=== PATIENT | female | born 1950 | race African-American/Black ===

== ENCOUNTER 2017-06-07 15:22 | Inpatient (IN) | payer MEDICARE, MEDICAID ==
[2017-06-07] VITALS (8 sets, daily range): BP systolic 118–192; BP diastolic 46–80
[~2017-06-07] VITALS: Ht 157.5 cm; Wt 71.4 kg
[~2017-06-07 15:22] MED LIST: ACETAMINOP160 MG/12 PER TUBE; ACETAMINOPHEN325 M1 PER TUBE; ACIDOPHILUS LA1 EAC1 PER TUBE; ALPRAZOLAM 0.0.25 M1 OR; APAP500; APAP500 PO; BENEPROTEIN1 EACH PER TUBE; CENTRUM SILVER1 EAC4 PO; CLEOCIN40 GM PER TUBE; CONSTULOSE10 GM/152; DILANTIN100 MG OR; DILANTIN50 MG PER TUBE; DITROPAN XL10 M1; DITROPAN XL10 M1 PO; DUONEB 2.5-0.5 M3 ML INH; ENULOSE10 GM/15 M PO; K-DUR10 ME1 OR; K-DUR10 ME1 PO; LACTULOSE10 GM/15 M PER TUBE; LANTUS SC; LASIX 40 MG TAB40 M2 PER TUBE; LEVAQUIN 500 M500 M2 PER TUBE; LEVEMIR SUBQ; LOPRESSOR25 PER TUBE; MILK OF MA2400 MG/10 PER TUBE; NEXIUM20 M1; NEXIUM40 MG PO; NOVOLIN N100 UNIT/1 SC; NOVOLIN R100 UNIT/1 SC; NOVOLOG100 UNIT/1 SC; NOVOLOG100 UNIT/1 SUBQ; NYSTATIN 1100000 U/M TOP; OXYGEN; PHENYTOIN100 MG/4 M; POLYETHYLENE G255 GM PO; POTASSIUM20 PO; PREVACID 15 MG15 M4 DISSOLVE; REGLAN 10 MG TA10 MG PO; REMERON15 MG PER TUBE; SEROQUEL 25 MG25 M1 OR; SEROQUEL 25 MG25 M1 PO; SILVADENE20 GM; SSD CREAM 1% 5050 G1 TOP; TOPROL XL25 MG; TRAVATAN 0.004%5 ML IO; TRUSOPT OCUMETE10 M1 IO; TRUSOPT OCUMETE10 ML OPHTHALMIC; TRUSOPT5 ML; TYLENOL325 MG PO; VITAMIN C + RO500 MG; VITAMIN C120 GM PO; XALATAN2.5 ML OPHTHALMIC; ZANTAC 150MG T150 MG PER TUBE; [UNRECOGNIZED DRUG - OTHER]
[2017-06-07] MEDS ORDERED: BISACODYL SUPP10 MG RECTAL (15:59)
[2017-06-07] MEDS ORDERED: ACIDOPHILUS1 EAC3 PO (15:59)
[2017-06-07] MEDS ORDERED: OMEPRAZOLE20 M2 PO (16:00)
[2017-06-07] MEDS ORDERED: REMERON15 MG PO (16:00)
[2017-06-07] MEDS ORDERED: TUBERCULIN IM (16:01)
[2017-06-07] MEDS ORDERED: SILVADENE20 GM TOP (16:01)
[2017-06-07] MEDS ORDERED: XALATAN2.5 ML OPHTHALMIC (16:02)
[2017-06-07 16:03] LABS: INFLUENZA A ANTIGEN None Detected (None Detect); INFLUENZA B ANTIGEN None Detected (None Detect)
[2017-06-07 16:40] LABS: HEMATOCRIT 45.6 % (37.0-47.0); HEMOGLOBIN 14.6 gm/dL (12.0-15.0); MCH 27.5 pg (26.0-34.0); MCHC 32.1 g/dL (28.0-37.0); MCV 85.5 fL (80.0-100.0); MPV 8.6 fl. (7.2-11.1); NUCLEATED RBCS 0 /100WBC; PLATELET COUNT* 128 thou/uL (150-400); RBC 5.33 mil/uL (4.20-5.00); RDW-CV 13.8 % (10.5-14.5); WBC 16.1 thou/uL (4.0-11.0)
[2017-06-07 16:44] LABS: URINE BILIRUBIN NEGATIVE (Negative); URINE BLOOD 2+ (Negative); URINE CLARITY CLOUDY; URINE COLOR YELLOW; URINE GLUCOSE-RANDOM 1+ (Negative); URINE KETONES 1+ (Negative); URINE LEUKOCYTES-REFLEX 1+ (Negative); URINE NITRITE-REFLEX NEGATIVE (Negative); URINE PROTEIN NEGATIVE (Negative); URINE UROBILINOGEN 0.2 E.U./dl (0.2-1.0)
[2017-06-07 16:48] LABS: INR 1.1; PROTIME 10.8 Seconds (9.20-11.50)
[2017-06-07 16:51] LABS: ANION GAP 11 mmol/L (7-16); BUN 11 mg/dL (7-18); CALCIUM 8.6 mg/dL (8.5-10.1); CHLORIDE 98 mmol/L (98-107); CO2 27 mmol/L (21-32); CREATININE 0.8 mg/dL (0.6-1.3); GLUCOSE 219 mg/dL (70-99); POTASSIUM 3.8 mmol/L (3.5-5.1); SODIUM 136 mmol/L (136-145)
[2017-06-07 17:02] LABS: CASTS None Seen /LPF (None Seen); SQUAMOUS >10 Many /LPF (0-3)
[2017-06-07 17:04] LABS: URINE WBC-REFLEX >25 Many /HPF (0-5)
[2017-06-07 17:04] LABS: ALBUMIN 3.1 g/dL (3.4-5.0); ALKALINE PHOSPHATASE 151 U/L (46-116); LIPASE 38 U/L (73-393); NT-PRO BRAIN NAT PEPTIDE 210 pg/mL (<300); SGOT 44 U/L (15-37); SGPT 41 U/L (30-65); TOTAL BILIRUBIN 0.3 mg/dL (<0.1-1.0); TOTAL PROTEIN 8.4 g/dL (6.4-8.2); TROPONIN-I LEVEL <0.06 ng/mL (<0.06)
[2017-06-07 17:05] LABS: BACTERIA-REFLEX >30 Many /HPF (None Seen)
[2017-06-07 17:06] LABS: CRYSTALS None Seen /LPF (None Seen)
[2017-06-07 17:14] LABS: ABSOLUTE LYMPHOCYTES 1.1 thou/uL (0.8-5.3); ABSOLUTE MONOCYTES 0.3 thou/uL (0.0-1.2); ABSOLUTE NEUTROPHILS 14.7 thou/uL (1.6-8.1)
[2017-06-07 17:15] LABS: PLATELET ESTIMATE ADEQUATE
[2017-06-08] VITALS (8 sets, daily range): BP systolic 99–166; BP diastolic 42–74
[2017-06-08 04:02] LABS: HEMATOCRIT 38.2 % (37.0-47.0); MCH 27.6 pg (26.0-34.0); MCHC 32.5 g/dL (28.0-37.0); MCV 84.9 fL (80.0-100.0); MPV 8.4 fl. (7.2-11.1); RBC 4.5 mil/uL (4.20-5.00); RDW-CV 13.9 % (10.5-14.5); WBC 10.9 thou/uL (4.0-11.0)
[2017-06-08 04:15] LABS: ALBUMIN 2.4 g/dL (3.4-5.0); CALCIUM 7.7 mg/dL (8.5-10.1); CREATININE 0.6 mg/dL (0.6-1.3); MAGNESIUM 1.6 mg/dL (1.8-2.4); POTASSIUM 3.5 mmol/L (3.5-5.1); TOTAL BILIRUBIN 0.3 mg/dL (<0.1-1.0); TOTAL PROTEIN 6.5 g/dL (6.4-8.2)
[2017-06-08 04:56] LABS: HEMOGLOBIN 12.4 gm/dL (12.0-15.0)
--- NOTE | 2017-06-08 16:28 | EKG ---
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: Shannon RADFORD : 1950 Requested By: Jaylan Walker Order Number: [id number] MD: Elias Prince Measurements Intervals [place] Rate: 117 P: 60 HI: 138 QRS: 46 QRSD: 74 T: 50 QT: 352 QTc: 491 Interpretive Statements Sinus tachycardia Nonspecific T abnrm, anterolateral and inferior leads, consider ischemia Borderline prolonged QT interval Compared to ECG 01/13/2017 22:08:57 Sinus rhythm no longer present Electronically Signed On 06-08-2017 16:28:27 RECEIVABLES SPECIALIST by Elias Prince [email or web address] <ELECTRONICALLY SIGNED> By: Elias Prince MD, FACC 06/08/17 1628 1536 1536 Elias Prince MD, FAC /EPI
[2017-06-09] VITALS: BP 155/68
[2017-06-09 04:00] VITALS: BP 141/55
[2017-06-09 05:36] LABS: HEMATOCRIT 36.6 % (37.0-47.0); HEMOGLOBIN 11.8 gm/dL (12.0-15.0); MCH 27.6 pg (26.0-34.0); MCHC 32.3 g/dL (28.0-37.0); MCV 85.4 fL (80.0-100.0); MPV 8.6 fl. (7.2-11.1); RBC 4.29 mil/uL (4.20-5.00); RDW-CV 14.1 % (10.5-14.5); WBC 8.2 thou/uL (4.0-11.0)
[2017-06-09 05:51] LABS: ALBUMIN 2.4 g/dL (3.4-5.0); CALCIUM 7.5 mg/dL (8.5-10.1); CREATININE 0.6 mg/dL (0.6-1.3); MAGNESIUM 1.8 mg/dL (1.8-2.4); TOTAL BILIRUBIN 0.1 mg/dL (<0.1-1.0); TOTAL PROTEIN 6.6 g/dL (6.4-8.2)
[2017-06-09 08:00] VITALS: BP 141/65
[2017-06-09 12:00] VITALS: BP 123/72
[2017-06-09 16:00] VITALS: BP 148/56
[2017-06-09 20:00] VITALS: BP 159/60
[2017-06-10] VITALS: BP 167/69
[2017-06-10 04:00] VITALS: BP 157/64
[2017-06-10 04:25] LABS: HEMATOCRIT 38.7 % (37.0-47.0); HEMOGLOBIN 12.4 gm/dL (12.0-15.0); MCH 27.4 pg (26.0-34.0); MCHC 31.9 g/dL (28.0-37.0); MCV 85.9 fL (80.0-100.0); MPV 8.8 fl. (7.2-11.1); RBC 4.5 mil/uL (4.20-5.00); RDW-CV 14.5 % (10.5-14.5); WBC 8.8 thou/uL (4.0-11.0)
[2017-06-10 04:32] LABS: CREATININE 0.6 mg/dL (0.6-1.3); POTASSIUM 3.5 mmol/L (3.5-5.1)
[2017-06-10 08:00] VITALS: BP 122/46
[2017-06-10 10:38] LABS: ABSOLUTE EOSINOPHILS 0.3 thou/uL (0.0-0.7); ABSOLUTE LYMPHOCYTES 1.6 thou/uL (0.8-5.3); ABSOLUTE MONOCYTES 0.7 thou/uL (0.0-1.2); ABSOLUTE NEUTROPHILS 4.8 thou/uL (1.6-8.1); BASOPHILS 0.4 %; EOSINOPHILS 4.2 %; HEMATOCRIT 36.8 % (37.0-47.0); HEMOGLOBIN 11.7 gm/dL (12.0-15.0); LYMPHOCYTES 21.5 %; MCH 27.4 pg (26.0-34.0); MCHC 31.7 g/dL (28.0-37.0); MCV 86.2 fL (80.0-100.0); MONOCYTES 9.8 %; MPV 8.6 fl. (7.2-11.1); NUCLEATED RBCS 0 /100WBC; PLATELET COUNT* 121 thou/uL (150-400); POLYS 64.1 %; RBC 4.27 mil/uL (4.20-5.00); RDW-CV 14.3 % (10.5-14.5); WBC 7.5 thou/uL (4.0-11.0)
[2017-06-10 10:42] LABS: CREATININE 0.7 mg/dL (0.6-1.3); POTASSIUM 3.7 mmol/L (3.5-5.1)
[2017-06-10 12:24] VITALS: BP 117/49
[2017-06-10 15:37] VITALS: BP 158/60
[2017-06-10 20:00] VITALS: BP 147/54
[2017-06-11] VITALS: BP 153/50
[2017-06-11 03:55] VITALS: BP 182/73
[2017-06-11 07:15] LABS: ABSOLUTE EOSINOPHILS 0.5 thou/uL (0.0-0.7); ABSOLUTE LYMPHOCYTES 1.9 thou/uL (0.8-5.3); ABSOLUTE MONOCYTES 0.8 thou/uL (0.0-1.2); ABSOLUTE NEUTROPHILS 5.5 thou/uL (1.6-8.1); BASOPHILS 0.4 %; EOSINOPHILS 5.4 %; HEMATOCRIT 35.9 % (37.0-47.0); HEMOGLOBIN 11.5 gm/dL (12.0-15.0); LYMPHOCYTES 22.2 %; MCH 27.4 pg (26.0-34.0); MCHC 32.1 g/dL (28.0-37.0); MCV 85.1 fL (80.0-100.0); MONOCYTES 9.3 %; MPV 7.9 fl. (7.2-11.1); NUCLEATED RBCS 0 /100WBC; PLATELET COUNT* 140 thou/uL (150-400); POLYS 62.7 %; RBC 4.22 mil/uL (4.20-5.00); RDW-CV 14.3 % (10.5-14.5); WBC 8.7 thou/uL (4.0-11.0)
[2017-06-11 07:29] LABS: CALCIUM 7.9 mg/dL (8.5-10.1); CREATININE 0.7 mg/dL (0.6-1.3); POTASSIUM 3.4 mmol/L (3.5-5.1)
[2017-06-11 08:00] VITALS: BP 154/66
[2017-06-11 12:51] VITALS: BP 139/81
[2017-06-11 16:46] VITALS: BP 138/54
[2017-06-11 20:00] VITALS: BP 146/44
[2017-06-12 00:24] VITALS: BP 159/56
[2017-06-12 04:38] VITALS: BP 143/51
[2017-06-12 06:08] LABS: ABSOLUTE EOSINOPHILS 0.5 thou/uL (0.0-0.7); ABSOLUTE LYMPHOCYTES 2.2 thou/uL (0.8-5.3); ABSOLUTE MONOCYTES 0.9 thou/uL (0.0-1.2); ABSOLUTE NEUTROPHILS 5.3 thou/uL (1.6-8.1); BASOPHILS 0.5 %; EOSINOPHILS 5.8 %; HEMATOCRIT 35.9 % (37.0-47.0); HEMOGLOBIN 11.6 gm/dL (12.0-15.0); MCH 27.5 pg (26.0-34.0); MCHC 32.2 g/dL (28.0-37.0); MCV 85.3 fL (80.0-100.0); NUCLEATED RBCS 0 /100WBC; PLATELET COUNT* 150 thou/uL (150-400); POLYS 58.7 %; RBC 4.21 mil/uL (4.20-5.00); RDW-CV 14.3 % (10.5-14.5)
[2017-06-12 06:12] LABS: CALCIUM 8.3 mg/dL (8.5-10.1); CREATININE 0.7 mg/dL (0.6-1.3); POTASSIUM 3.9 mmol/L (3.5-5.1)
[2017-06-12 08:00] VITALS: BP 139/57
[2017-06-12 12:11] VITALS: BP 143/78
[2017-06-12 16:00] VITALS: BP 135/42
[2017-06-12 20:05] VITALS: BP 167/66
[2017-06-13] VITALS: BP 147/61
[2017-06-13 04:40] VITALS: BP 124/56
[2017-06-13 05:31] LABS: CALCIUM 8.3 mg/dL (8.5-10.1); CREATININE 0.6 mg/dL (0.6-1.3); POTASSIUM 3.7 mmol/L (3.5-5.1)
[2017-06-13 08:15] VITALS: BP 113/49
[2017-06-13 11:37] VITALS: BP 115/53
[2017-06-13 16:00] VITALS: BP 131/48
[2017-06-13 20:35] VITALS: BP 132/43
[2017-06-14] VITALS: BP 137/45
[2017-06-14 04:00] VITALS: BP 130/44
[2017-06-14 05:24] LABS: CALCIUM 8.4 mg/dL (8.5-10.1); CREATININE 0.8 mg/dL (0.6-1.3); POTASSIUM 3.8 mmol/L (3.5-5.1)
[2017-06-14 08:00] VITALS: BP 114/48
[2017-06-14 11:34] VITALS: BP 17/63
[2017-06-14 15:30] VITALS: BP 130/49
[2017-06-15] VITALS (7 sets, daily range): BP systolic 115–168; BP diastolic 46–83
[2017-06-15 05:00] LABS: HEMATOCRIT 35.2 % (37.0-47.0); HEMOGLOBIN 11.3 gm/dL (12.0-15.0); MCH 27.4 pg (26.0-34.0); MCHC 31.9 g/dL (28.0-37.0); MCV 85.9 fL (80.0-100.0); MPV 7.9 fl. (7.2-11.1); RBC 4.1 mil/uL (4.20-5.00); RDW-CV 14.7 % (10.5-14.5); WBC 8.9 thou/uL (4.0-11.0)
[2017-06-15 05:11] LABS: CALCIUM 8.3 mg/dL (8.5-10.1); CREATININE 0.8 mg/dL (0.6-1.3); POTASSIUM 3.8 mmol/L (3.5-5.1)
[2017-06-16 04:00] VITALS: BP 163/56
[2017-06-16 04:50] LABS: HEMATOCRIT 34.6 % (37.0-47.0); MCH 27.5 pg (26.0-34.0); MCHC 31.8 g/dL (28.0-37.0); MCV 86.6 fL (80.0-100.0); RBC 3.99 mil/uL (4.20-5.00); WBC 11.2 thou/uL (4.0-11.0)
[2017-06-16 05:17] LABS: CALCIUM 8.4 mg/dL (8.5-10.1); CREATININE 1.5 mg/dL (0.6-1.3)
[2017-06-16 08:00] VITALS: BP 150/60
[2017-06-16 09:35] LABS: CALCIUM 8.6 mg/dL (8.5-10.1); CREATININE 1.7 mg/dL (0.6-1.3); POTASSIUM 4.1 mmol/L (3.5-5.1)
[2017-06-16 12:23] VITALS: BP 125/41
[2017-06-16 15:52] VITALS: BP 133/48
[2017-06-16 19:35] VITALS: BP 160/63
[2017-06-17 00:08] VITALS: BP 177/64
[2017-06-17 04:27] VITALS: BP 161/57
[2017-06-17 05:57] LABS: HEMATOCRIT 33.9 % (37.0-47.0); HEMOGLOBIN 10.7 gm/dL (12.0-15.0); MCH 27.3 pg (26.0-34.0); MCHC 31.7 g/dL (28.0-37.0); MCV 86.1 fL (80.0-100.0); MPV 7.9 fl. (7.2-11.1); RBC 3.93 mil/uL (4.20-5.00); RDW-CV 14.9 % (10.5-14.5); WBC 13.4 thou/uL (4.0-11.0)
[2017-06-17 06:06] LABS: CALCIUM 8.2 mg/dL (8.5-10.1); CREATININE 2.1 mg/dL (0.6-1.3)
[2017-06-17 08:00] VITALS: BP 149/55
[2017-06-17 12:09] VITALS: BP 132/62
[2017-06-17 16:00] VITALS: BP 162/58
[2017-06-17 20:00] VITALS: BP 175/64
[2017-06-18] VITALS (8 sets, daily range): BP systolic 140–190; BP diastolic 52–80
[2017-06-18 05:06] LABS: HEMATOCRIT 31.9 % (37.0-47.0); HEMOGLOBIN 10.3 gm/dL (12.0-15.0); MCH 27.5 pg (26.0-34.0); MCHC 32.3 g/dL (28.0-37.0); MCV 85.2 fL (80.0-100.0); MPV 8.5 fl. (7.2-11.1); RBC 3.75 mil/uL (4.20-5.00); RDW-CV 14.7 % (10.5-14.5); WBC 12.6 thou/uL (4.0-11.0)
[2017-06-18 05:11] LABS: CALCIUM 8.4 mg/dL (8.5-10.1); CREATININE 2.1 mg/dL (0.6-1.3); MAGNESIUM 2.3 mg/dL (1.8-2.4); POTASSIUM 3.7 mmol/L (3.5-5.1)
[2017-06-19 00:12] VITALS: BP 141/72
[2017-06-19 04:01] VITALS: BP 149/54
[2017-06-19 06:25] LABS: HEMATOCRIT 30.6 % (37.0-47.0); HEMOGLOBIN 9.7 gm/dL (12.0-15.0); MCH 27.2 pg (26.0-34.0); MCHC 31.5 g/dL (28.0-37.0); MCV 86.2 fL (80.0-100.0); MPV 8.3 fl. (7.2-11.1); RBC 3.55 mil/uL (4.20-5.00); RDW-CV 14.3 % (10.5-14.5); WBC 9.6 thou/uL (4.0-11.0)
[2017-06-19 06:50] LABS: CALCIUM 8.4 mg/dL (8.5-10.1); CREATININE 2.1 mg/dL (0.6-1.3); MAGNESIUM 2.2 mg/dL (1.8-2.4); POTASSIUM 3.5 mmol/L (3.5-5.1); TOTAL BILIRUBIN 0.3 mg/dL (<0.1-1.0); TOTAL PROTEIN 6.8 g/dL (6.4-8.2)
[2017-06-19 08:00] VITALS: BP 172/76
[2017-06-19 12:00] VITALS: BP 151/69
[2017-06-19 16:00] VITALS: BP 146/81
[2017-06-19 20:00] VITALS: BP 132/82
[2017-06-20] VITALS (7 sets, daily range): BP systolic 151–185; BP diastolic 56–74
[2017-06-20 06:21] LABS: HEMATOCRIT 31.7 % (37.0-47.0); HEMOGLOBIN 10.2 gm/dL (12.0-15.0); MCH 27.4 pg (26.0-34.0); MCHC 32.3 g/dL (28.0-37.0); MPV 8.2 fl. (7.2-11.1); RBC 3.73 mil/uL (4.20-5.00); RDW-CV 14.6 % (10.5-14.5); WBC 12.4 thou/uL (4.0-11.0)
[2017-06-20 06:41] LABS: ALBUMIN 2.2 g/dL (3.4-5.0); CALCIUM 8.7 mg/dL (8.5-10.1); CREATININE 2.1 mg/dL (0.6-1.3); MAGNESIUM 2.2 mg/dL (1.8-2.4); PHOSPHORUS* 2.6 mg/dL (2.5-4.9); POTASSIUM 3.9 mmol/L (3.5-5.1); TOTAL BILIRUBIN 0.2 mg/dL (<0.1-1.0); TOTAL PROTEIN 7.5 g/dL (6.4-8.2)
[2017-06-20 16:00] LABS: URINE BILIRUBIN NEGATIVE (Negative); URINE BLOOD TRACE (Negative); URINE CLARITY CLEAR; URINE GLUCOSE-RANDOM 2+ (Negative); URINE KETONES NEGATIVE (Negative); URINE LEUKOCYTES-REFLEX TRACE (Negative); URINE NITRITE-REFLEX NEGATIVE (Negative); URINE PROTEIN NEGATIVE (Negative); URINE UROBILINOGEN 0.2 E.U./dl (0.2-1.0)
[2017-06-20 16:01] LABS: URINE COLOR PALE YELLOW
[2017-06-20 16:12] LABS: CASTS None Seen /LPF (None Seen); CRYSTALS None Seen /LPF (None Seen); SQUAMOUS 4-10 Moderate /LPF (0-3); URINE RBC 0-2 Rare /HPF (0-2); URINE WBC-REFLEX 6-15 Few /HPF (0-5); YEAST-REFLEX Present (None Seen)
[2017-06-20 17:06] LABS: POTASSIUM 3.6 mmol/L (3.5-5.1)
[2017-06-21 04:00] VITALS: BP 156/42
[2017-06-21 05:31] LABS: HEMATOCRIT 29.9 % (37.0-47.0); HEMOGLOBIN 9.7 gm/dL (12.0-15.0); MCH 27.9 pg (26.0-34.0); MCHC 32.6 g/dL (28.0-37.0); MCV 85.7 fL (80.0-100.0); MPV 8.5 fl. (7.2-11.1); RBC 3.48 mil/uL (4.20-5.00); RDW-CV 14.6 % (10.5-14.5); WBC 7.6 thou/uL (4.0-11.0)
[2017-06-21 05:51] LABS: ALBUMIN 2.1 g/dL (3.4-5.0); CALCIUM 8.1 mg/dL (8.5-10.1); CREATININE 1.8 mg/dL (0.6-1.3); MAGNESIUM 2.1 mg/dL (1.8-2.4); PHOSPHORUS* 2.4 mg/dL (2.5-4.9); POTASSIUM 3.6 mmol/L (3.5-5.1); TOTAL BILIRUBIN 0.1 mg/dL (<0.1-1.0); TOTAL PROTEIN 7.3 g/dL (6.4-8.2)
[2017-06-21 07:30] VITALS: BP 160/59
[2017-06-21 12:11] VITALS: BP 153/66
[2017-06-21 16:00] VITALS: BP 146/57
[2017-06-21 20:00] VITALS: BP 156/70
[2017-06-21 23:47] VITALS: BP 168/84
[2017-06-22 03:32] VITALS: BP 168/72
[2017-06-22 05:19] LABS: ALBUMIN 2.3 g/dL (3.4-5.0); CALCIUM 8.2 mg/dL (8.5-10.1); CREATININE 1.6 mg/dL (0.6-1.3)
[2017-06-22 08:00] VITALS: BP 141/59
--- NOTE | 2017-06-22 10:41 | CON ---
[address] [address] CONSULTATION Name: JANEY MAGAÑA Room: [address] IN [facility]#: [id number] Admission: 06/07/17 Attend Phys: Yennifer Hodges MD Discharge: Date of : 46 Report #: [id number] THIS REPORT FOR: //name// CC: Yennifer Haas REQUESTING PHYSICIAN: Dr. Seay. REASON FOR CONSULTATION: Hypernatremia and acute kidney injury. 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 She cannot walk, cannot use her right arm, mental status is altered. She also has history of diabetes mellitus type 2, COPD. She was admitted to the hospital with fever, possible aspiration. She was diagnosed with pneumonia and E. coli UTI, started on antibiotics, her creatinine jumped up from 0.8 yesterday to 1.5 today and serum sodium is 149 and I was consulted. PAST MEDICAL HISTORY: As mentioned earlier. The patient is nonverbal. REVIEW OF SYSTEMS: Unobtainable due to her being nonverbal. SOCIAL HISTORY: She has good family support. No tobacco or alcohol abuse obviously due to her condition. MEDICATIONS: She is on Rocephin, Dilantin, insulin, IV fluids, she is on half normal saline and she is also on tube feeding and free water boluses 3 tube feeding. PHYSICAL EXAMINATION: GENERAL: Nonverbal, does not react to any of my command and to my voice. VITAL SIGNS: Blood pressure 150/60, heart rate 95 and temperature 37.8 Celsius maximum temperature 38.2 Celsius. NECK: Supple. LUNGS: A few coarse breath sounds, but otherwise clear. CARDIOVASCULAR: Regular rate. No pericardial rub. ABDOMEN: Soft, obese. She got PEG tube in place. EXTREMITIES: With 1-2+ edema. LABORATORY DATA: Serum sodium 149, potassium 4.1, chloride 109, carbon dioxide 31, BUN 25, creatinine 1.7. Hemoglobin is 11.0, white count 11,200. Her urine culture positive for E. coli. Blood culture positive for group B species. ASSESSMENT: A 67-year-old female status post stroke. She is bedridden and nonverbal, admitted with pneumonia, bacteremia and Escherichia coli and urinary tract infection. She developed some acute kidney injury likely due to all these infections. She is nonoliguric. She is on antibiotics, [place] [address] CONSULTATION Name: JANEY MAGAÑA Room: [address]#: [id number] Admission: 06/07/17 Attend Phys: Yennifer Hodges MD Discharge: Date of : 46 Report #: [id number] boluses through tube feeds with a PEG tube and antibiotics and fluids so everything is appropriate. I would continue with current management and observe for response. Thank you very much for asking my opinion on acute kidney injury of this patient. <ELECTRONICALLY SIGNED> By: Perla Fermin MD 06/22/17 1041 1053 1527Alexfredy Funez MD /PMT
[2017-06-22 11:53] VITALS: BP 141/66
[2017-06-22 16:31] VITALS: BP 131/44
[2017-06-22 20:00] VITALS: BP 162/64
[2017-06-22 23:23] VITALS: BP 175/70
[2017-06-23 03:48] VITALS: BP 153/44
[2017-06-23 08:00] VITALS: BP 170/71
[2017-06-23 11:30] VITALS: BP 163/65
[2017-06-23 12:27] LABS: HEMATOCRIT 29.5 % (37.0-47.0); HEMOGLOBIN 9.5 gm/dL (12.0-15.0); MCH 27.5 pg (26.0-34.0); MCHC 32.4 g/dL (28.0-37.0); MPV 8.3 fl. (7.2-11.1); RBC 3.47 mil/uL (4.20-5.00); RDW-CV 14.4 % (10.5-14.5); WBC 7.1 thou/uL (4.0-11.0)
[2017-06-23 12:38] LABS: CALCIUM 8.4 mg/dL (8.5-10.1); CREATININE 1.4 mg/dL (0.6-1.3); POTASSIUM 4.1 mmol/L (3.5-5.1)
[2017-06-23 15:30] VITALS: BP 151/55
[2017-06-23 20:00] VITALS: BP 155/67
[2017-06-24] VITALS (7 sets, daily range): BP systolic 151–165; BP diastolic 53–70
[2017-06-24 04:46] LABS: HEMATOCRIT 29.2 % (37.0-47.0); HEMOGLOBIN 9.7 gm/dL (12.0-15.0); MCH 28.4 pg (26.0-34.0); MCHC 33.3 g/dL (28.0-37.0); MCV 85.2 fL (80.0-100.0); MPV 8.4 fl. (7.2-11.1); RBC 3.42 mil/uL (4.20-5.00); RDW-CV 14.3 % (10.5-14.5); WBC 8.3 thou/uL (4.0-11.0)
[2017-06-24 05:15] LABS: CALCIUM 8.4 mg/dL (8.5-10.1); CREATININE 1.3 mg/dL (0.6-1.3); POTASSIUM 4.1 mmol/L (3.5-5.1)
[2017-06-25 04:23] VITALS: BP 147/55
[2017-06-25 05:31] LABS: HEMATOCRIT 30.2 % (37.0-47.0); HEMOGLOBIN 9.9 gm/dL (12.0-15.0); MCH 28.1 pg (26.0-34.0); MCHC 32.8 g/dL (28.0-37.0); MCV 85.6 fL (80.0-100.0); MPV 9.1 fl. (7.2-11.1); RBC 3.53 mil/uL (4.20-5.00); RDW-CV 14.7 % (10.5-14.5); WBC 8.1 thou/uL (4.0-11.0)
[2017-06-25 05:45] LABS: CALCIUM 8.8 mg/dL (8.5-10.1); CREATININE 1.2 mg/dL (0.6-1.3); POTASSIUM 4.4 mmol/L (3.5-5.1)
[2017-06-25 12:13] VITALS: BP 119/62
[2017-06-25 15:50] VITALS: BP 118/51
[2017-06-25] MEDS ORDERED: DDAVP0.1 MG/1 M NASAL (15:56)
[2017-06-25] MEDS ORDERED: BISACODYL SUPP10 MG RECTAL (15:57)
[2017-06-25] MEDS ORDERED: MYCOSTATIN TOP ×2 (15:58→15:59)
[2017-06-25] MEDS ORDERED: NORVASC5 MG PER TUBE (16:00)
[2017-06-25] MEDS ORDERED: TYLENOL325 MG PER TUBE (16:01)
--- NOTE | 2017-07-03 00:06 | CON ---
[address] [address] CONSULTATION Name: JANEY AVELAR Room: [address]#: [id number] Admission: 06/07/17 Attend Phys: Yennifer Hodges MD Discharge: 06/25/17 Date of : 46 Report #: [id number] THIS REPORT FOR: //name// CC: Yennifer Haas DATE OF SERVICE: 06/19/2017 CONSULTATION: Infectious diseases. HISTORY OF PRESENT ILLNESS: Ms. Avelar is a debilitated 67-year-old female who has been hospitalized since 06/07. 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 She was initially admitted with elevated temperature, nausea and vomiting, was thought to have an aspiration pneumonia. Initial workup included positive blood culture with enterococcus. The patient has been in the hospital and improving. On , the patient began having more fever as high as 101.9 and doing worse. Blood cultures were obtained. Infectious Disease consultation was requested for fever and positive blood culture. PAST HISTORY: Significant for diabetes with hypertension and COPD. The patient has a history of seizures, stroke, dementia and depression. The patient is pretty much aphasic and dependent for all the activities of daily living. She is a chronic fci patient, as a result, and no history of allergies. MEDICATION RECONCILIATION: As follow: Vancomycin 500 mg q.12h., meropenem 500 mg IV every 8 hours, nystatin partner q.i.d. to the groin, sliding scale lispro insulin with p.r.n. dextrose and glucagon, fluconazole 100 mg IV daily, Zosyn 3.375 IV q. 6h., phenytoin 100 mg per G-tube t.i.d., pantoprazole 40 mg IV b.i.d., Silvadene to wounds, phosphorous 2 packets per tube t.i.d., magnesium p.r.n. per protocol, dorzolamide eyedrops one b.i.d., Latanoprost eyedrops 0.005% 1 drop bedtime, mirtazapine 15 mg per tube at bedtime, metoprolol 25 mg per tube b.i.d., lactobacillus acidophilus 1 tablet per tube q.i.d., lactulose 15 mL per tube q.i.d., metoclopramide 5 mg per tube a.c. and bedtime, DuoNeb aerosol 3 mL q.i.d., p.r.n. Tylenol, bisacodyl and magnesium hydroxide. The patient is currently on acyclovir 400 mg IV t.i.d., scheduled to stop on 06/19. FAMILY HISTORY: Noncontributory. SOCIAL HISTORY: The patient is a chronic fci patient without use of tobacco, alcohol or drugs. REVIEW OF SYSTEMS: Unavailable because of the [place] [address] CONSULTATION Name: JANEY AVELAR Room: [address]#: [id number] Admission: 06/07/17 Attend Phys: Yennifer Hodges MD Discharge: 06/25/17 Date of : 46 Report #: [id number] PHYSICAL EXAMINATION: GENERAL: The patient appears to be a chronically ill woman lying in bed, comfortable, not in any distress. VITAL SIGNS: Show maximum temperature of 101.9. Blood pressure 182/70. The patient has manifestations of right-sided stroke with contracture in the right upper extremity, she has a tracheotomy and gastrostomy. SKIN: Shows no wounds or exanthem. There are monilial changes in the groin with copious nystatin powder. ENT: Negative. Mentally, the patient is able to track with her eyes, but does not really nod consistently or make any verbalizations. HEENT: Shows the matured trach. HEART: Sounds S1, S2. CHEST: Breath sounds, coarse. ABDOMEN: Belly is obese, soft, nontender. Gastrostomy tube appears unremarkable. The patient was having watery diarrhea at the time of my examination. EXTREMITIES: Show the neurological changes, but otherwise unremarkable. LABORATORY DATA: The white count was 13.4, now down to 9.6; hemoglobin has gone from 13.4 to 9.7, hematocrit 30.6. Electrolytes are normal. BUN 28 and creatinine 2.1, up from 0.6. Lactate has gone from 3.6 to 2.2. Liver function tests are normal. Hemoglobin A1c in April was elevated at 10.3. ASSESSMENT AND PLAN: At this time, the patient is demonstrating elevated temperature and leukocytosis after being in the hospital for 2 weeks. I would be concerned about the possibility of a central line infection. She has had a right internal jugular catheter in her right neck since 06/07. The site appears okay, but this is about 2 weeks now, which is the limit for a safe use of a nontunneled catheter. With the diarrhea and the extensive antibiotic treatment, I would be concerned about Clostridium difficile colitis. Certainly, the patient is at risk for continued nosocomial pneumonia. The chest x-ray shows continued patchy infiltrates in the bases. At this time, I just simplified the antibiotics to vancomycin and meropenem pending results of cultures of blood, urine, sputum and stool for C. diff. We can change the fluconazole from IV to oral, discontinue Levaquin and acyclovir. I would like to have a PICC line placed and then remove the internal jugular catheter and do a culture of the tip of the catheter. We will discontinue the Zosyn, If the patient has C. difficile, we will want to discontinue unnecessary antibiotics [place] [address] CONSULTATION Name: JANEY AVELAR Room: [address]#: [id number] Admission: 06/07/17 Attend Phys: Yennifer Hodges MD Discharge: 06/25/17 Date of : 46 Report #: [id number] I appreciate the opportunity to offer input in the care of this complex patient. Thank you for requesting infectious disease input. <ELECTRONICALLY SIGNED> By: Bo Rhodes MD 07/03/17 0006 [id number] [id number] Rhodes MD /nt
--- NOTE | 2017-07-14 20:10 | CON ---
[address] [address] CONSULTATION Name: JANEY MAGAÑA Room: [address] IN [facility]#: [id number] Admission: 06/07/17 Attend Phys: Yennifer Hodges MD Discharge: 06/25/17 Date of : 46 Report #: [id number] THIS REPORT FOR: //name// CC: Yennifer Haas DATE OF SERVICE: 06/23/2017 HISTORY OF PRESENT ILLNESS: This is a 67-year-old female patient was aphasic. She is not able to provide any history and no family member is available. The history is from the records. It looks like this patient lives either in a fdc or in . History is available from July and apparently this patient is not ambulatory and 1 of the records says that she may have had some aneurysms and then stroke and that history is not completely clear. Nurses do not know anything about this patient, it is not clear when this patient had any altered mental status. There is some poorly defined history of seizures also associated with it, but no further history is available. REVIEW OF SYSTEMS: Indicate that this patient has been seen by multiple consultants. The patient was seen by renal for abnormality of sodium. She also has a significant high blood sugar. Last Dilantin level was checked in December and it was 6.3. She is anemic. This was a relevant 14-point review of system, which is pretty extensive. PAST MEDICAL HISTORY: Positive for stroke. It looks like it is secondary to aneurysms. FAMILY HISTORY: Unavailable, but the best I can tell, there is no family history of early stroke and the stroke was secondary to aneurysm. SOCIAL HISTORY: She lives in a fdc. PHYSICAL EXAMINATION: The patient is aphasic. She does not follow any commands. She opens her eyes. That makes the examination difficult. It is not possible to check her memory and fund of knowledge. Cranial nerve examination 2-12 was attempted. We did not reach anywhere, but she may have weakness on the right side of the face. She did not move the right upper extremity and there may be some movement in the right lower extremity. She did not move the left side at all. I cannot tell about position since, but she does appear to have increased tone on the right side. I cannot tell about sensation or cerebellar sign. She does not allow to look at the fundus. She appeared to be well developed. Pulses are difficult to feel. She does not have any edema. There does not appear to be any meningeal sign, thyroid mass or carotid bruit. She does appear to have some rhonchi. Cardiac examination, appear noncontributory. IMPRESSION: [place] [address] CONSULTATION Name: JANEY MAGAÑA Room: [address] IN [facility].#: [id number] Admission: 06/07/17 Attend Phys: Yennifer Hodges MD Discharge: 06/25/17 Date of : 46 Report #: [id number] 1. Status post cerebrovascular accident. 2. Possible encephalopathy. 3. Very poor quality of life with multisystem problems. RECOMMENDATIONS: 1. We will recommend pretty conservative care in this patient. 2. I will get a CT scan and an EEG done sometime. 3. I will follow up in case CT scan and EEG shows something, but otherwise I will suggest continue managing her systemic problem. Thank you very much for this referral. If you have any questions, please feel free to contact. <ELECTRONICALLY SIGNED> By: Chino Mars MD 07/14/172009 1948 0239Chino Mars MD /nt
--- NOTE | 2017-07-14 20:10 | EEG ---
[address] [address] EEG STUDY REPORT Name: JANEY MAGAÑA Room: [address]#: [id number] Admission: 06/07/17 Attend Phys: Yennifer Hodges MD Discharge: 06/25/17 Date of : 46 Report #: [id number] THIS REPORT FOR: //name// CC: [facility] DATE OF SERVICE: 06/25/2017 This patient is being evaluated for altered mental status. EEG was done by placing the electrodes by standard 10-20 system of electrode placement. This patient's background activity is about 6-7 Hz and 30 microvolt. It is suppressed on the left side as expected with the patient's stroke. However, the patient's EEG is slow on both sides and intermixed with theta range slowing on both sides. Photic stimulation is unremarkable. Throughout the record, no active epileptiform activity was noted. IMPRESSION: This is an abnormal electroencephalogram because it is slow on the left side. That is most likely the results of insult to the left cerebral hemisphere. But the electroencephalogram is slow in generalized fashion also. That is a nonspecific finding, which can occur with encephalopathy, effect of psychotropic medication, dementia, etc. Clinical correlation is recommended. Thank you very much for this referral. <ELECTRONICALLY SIGNED> By: Chino Mars MD 07/14/172009 1455 1621PMD isauro Hollis
== END 2017-06-25 17:29 | DRG 871 ==
LOC: M.ERS 15:22 → M.ICU 17:15 → M.TBA-ER 17:15 → M.ICU 18:00 → M.2W 06-08 11:35
PROVIDERS: Family Medicine; Internal Medicine; Internal Medicine Nephrology; ADMIT Internal Medicine
PROC: 02HV33Z Insertion of Infusion Device into Superior Vena Cava, Percutaneous Approach (ICD-10-PCS; principal; 2017-06-07)
DX: A41.81 Sepsis due to Enterococcus (principal); G93.40 Encephalopathy, unspecified; N17.0 Acute kidney failure with tubular necrosis; J69.0 Pneumonitis due to inhalation of food and vomit; N39.0 Urinary tract infection, site not specified; R47.01 Aphasia; E87.0 Hyperosmolality and hypernatremia; G81.91 Hemiplegia, unspecified affecting right dominant side; I12.0 Hypertensive chronic kidney disease with stage 5 chronic kidney disease or end stage renal disease; J44.9 Chronic obstructive pulmonary disease, unspecified; G40.909 Epilepsy, unspecified, not intractable, without status epilepticus; F03.90 Unspecified dementia, unspecified severity, without behavioral disturbance, psychotic disturbance, mood disturbance, and anxiety; F32.9 Major depressive disorder, single episode, unspecified; F39 Unspecified mood [affective] disorder; R13.10 Dysphagia, unspecified; B96.20 Unspecified Escherichia coli [E. coli] as the cause of diseases classified elsewhere; E83.39 Other disorders of phosphorus metabolism; E87.6 Hypokalemia; D63.8 Anemia in other chronic diseases classified elsewhere; N18.3 Chronic kidney disease, stage 3 (moderate); E11.22 Type 2 diabetes mellitus with diabetic chronic kidney disease; Z86.73 Personal history of transient ischemic attack (TIA), and cerebral infarction without residual deficits; Z88.6 Allergy status to analgesic agent; Z82.3 Family history of stroke; Z79.899 Other long term (current) drug therapy